=== PATIENT | female | born 1995 | race Caucasian/White ===

== ENCOUNTER 2016-08-06 19:08 | Outpatient (CLI) | payer BC ==
[~2016-08-06] VITALS: Ht 180.3 cm; Wt 112.3 kg
[~2016-08-06 19:08] MED LIST: AMOXICILLIN 25250 MG PO; AMOXICILLIN 50500 MG PO; BCP TD; CEPHALEXIN250 M1 PO; DIFLUCAN200 MG PO; ELIMITE TOP; LO/OVRAL-28 301 TA1 PO; LO/OVRAL-28 301 TAB PO; MOTRIN 800800 MG/TAB PO; NO HOME MEDICATIONS; NORCO 325 MG-51 TAB PO; PERCOCET 325 MG1 TA2 PO; PHENERGAN 25 TA25 MG PO; PRENATAL1 TA1 PO; ULTRAM 50MG TAB50 MG PO
[2016-08-06 20:47] VITALS: BP 119/66; PULSE 77; TEMP 98.1
[2016-08-06] MEDS ORDERED: VALTREX 50500 MG/TAB PO (20:54)
[2016-08-06] MEDS ORDERED: PRENATAL1 TA7 PO (20:54)
[2016-08-06] MEDS ORDERED: ZANTAC 7575 MG PO (20:59)
== END 2016-08-06 21:10 | disposition home or self-care (01) ==
LOC: LDRO 19:08
DX: Z03.71 Encounter for suspected problem with amniotic cavity and membrane ruled out (principal); Z87.891 Personal history of nicotine dependence; W10.8XXA Fall (on) (from) other stairs and steps, initial encounter; Y93.01 Activity, walking, marching and hiking

== ENCOUNTER 2016-08-17 03:41 | Inpatient (IN) | payer BC ==
[2016-08-17] VITALS (34 sets, daily range): BP systolic 86–132; BP diastolic 47–79; PULSE 72–102; TEMP 97.8–98.2
[~2016-08-17] VITALS: Ht 175.3 cm; Wt 115.0 kg
[~2016-08-17 03:41] MED LIST changes: +PRENATAL1 TA7 PO; +VALTREX 50500 MG/TAB PO; +ZANTAC 7575 MG PO
[2016-08-17 04:51] LABS: BASO # 0.1 (0.0-0.2); BASO % 0.3 % (0.0-2.0); EOS # 0.1 (0.0-0.7); EOS % 0.7 % (0-4.0); GRAN # 12.3 (1.4-6.5); GRAN % 73.6 % (42.2-75.2); LYMPH # 3.1 (1.2-3.4); LYMPH % 18.5 % (20.0-51.0); MEAN CELL VOLUME 85 fl (80.0-100.0); MEAN CORPUSCULAR HGB CONC 34 g/dl (33.0-37.0); MEAN PLATELET VOLUME 10.7 fl (7.4-10.4); MONO # 1.1 (0.1-0.6); MONO % 6.4 % (1.7-9.3); PLATELET COUNT 179 K/mm3 (130-400); RED BLOOD COUNT 4.06 M/mm3 (4.10-5.30); REDCELL DISTRIBUTION WIDTH-CV 12.5 % (11.5-14.5); WHITE BLOOD COUNT 16.7 K/mm3 (4.8-10.8)
[2016-08-17 04:53] LABS: HEMATOCRIT 34.4 % (37.0-47.0); HEMOGLOBIN 11.8 g/dl (12.5-16.0); MEAN CORPUSCULAR HEMOGLOBIN 29 pg (27.0-31.0)
[2016-08-18 01:10] VITALS: BP 112/65; PULSE 96; TEMP 97.5
[2016-08-18 07:14] VITALS: BP 114/68; PULSE 76; TEMP 98.2
[2016-08-18] MEDS ORDERED: IBU800 M1 PO (11:16)
[2016-08-18] MEDS ORDERED: PERCOCET 325 MG1 TA2 PO (11:17)
[2016-08-18 16:41] VITALS: BP 108/64; PULSE 78; TEMP 98.1
[2016-08-18 21:00] VITALS: BP 113/65; PULSE 77; TEMP 98.2
[2016-08-19 09:26] VITALS: BP 104/81; PULSE 86; TEMP 97.6
== END 2016-08-19 11:30 | disposition home or self-care (01) | DRG 775 ==
LOC: LDRO 03:41 → LDR 04:00 → OB 14:00
PROVIDERS: Obstetrics & Gynecology
PROC: 10D07Z6 Extraction of Products of Conception, Vacuum, Via Natural or Artificial Opening (ICD-10-PCS; principal; 2016-08-17)
PROC: 0HQ9XZZ Repair Perineum Skin, External Approach (ICD-10-PCS; 2016-08-17)
DX: O76 Abnormality in fetal heart rate and rhythm complicating labor and delivery (principal); O70.0 First degree perineal laceration during delivery; Z3A.38 38 weeks gestation of pregnancy; Z37.0 Single live birth
CPT/HCPCS: J2210; J2405; J2590; J7120

== ENCOUNTER 2016-09-29 06:06 | Emergency (ER) | payer BC ==
[~2016-09-29] VITALS: Ht 177.8 cm; Wt 104.1 kg
[~2016-09-29 06:06] MED LIST changes: +IBU800 M1 PO
[2016-09-29 06:08] VITALS: BP 110/69; TEMP 97.7
[2016-09-29 06:51] VITALS: PULSE 80
== END 2016-09-29 06:52 | disposition home or self-care (01) ==
LOC: COL.ER 06:06
DX: Z04.8 Encounter for examination and observation for other specified reasons (principal)

== ENCOUNTER 2017-02-18 17:48 | Emergency (ER) | payer BC ==
[~2017-02-18] VITALS: Ht 177.8 cm; Wt 98.6 kg
[2017-02-18] MEDS ORDERED: BIRTH CONTROL (17:52)
[2017-02-18 20:00] VITALS: BP 116/08; PULSE 63; TEMP 98.1
== END 2017-02-18 19:58 | disposition home or self-care (01) ==
LOC: COL.ER 17:48
DX: S43.004A Unspecified dislocation of right shoulder joint, initial encounter (principal); Z87.828 Personal history of other (healed) physical injury and trauma; Z87.891 Personal history of nicotine dependence; X50.3XXA Overexertion from repetitive movements, initial encounter; Y92.219 Unspecified school as the place of occurrence of the external cause; Y99.0 Civilian activity done for income or pay
CPT/HCPCS: J1170; J2704; J7030

== ENCOUNTER → 2017-03-07 | Outpatient (CLI) | payer BC ==
[~2017-03-07] MED LIST changes: +BIRTH CONTROL
== END ==
LOC: COL.RAD 02-26 08:30
DX: M24.411 Recurrent dislocation, right shoulder (principal); M89.8X1 Other specified disorders of bone, shoulder; M75.81 Other shoulder lesions, right shoulder; M21.821 Other specified acquired deformities of right upper arm
CPT/HCPCS: A9585; Q9967

== ENCOUNTER 2018-10-02 23:55 | Emergency (ER) | payer BC, MEDICAID ==
[~2018-10-02] VITALS: Ht 180.3 cm; Wt 111.8 kg
[2018-10-03 02:39] LABS: COLLECTION METHOD CLEAN CATCH
--- NOTE | 2018-10-03 02:45 | NUR ---
Difficult to maintain FHR tracing r/t gest age, movement, and maternal size. Monitor held in place for tracing. movements palpated.
[2018-10-03 02:50] LABS: MUCOUS Present /lpf; PH 5 (5-8); URINE APPEARANCE Hazy; URINE BACTERIA Rare /hpf; URINE BILIRUBIN Negative (NEGATIVE); URINE BLOOD Negative (NEGATIVE); URINE COLOR Yellow; URINE GLUCOSE Negative (NEGATIVE); URINE KETONE 2+ (NEGATIVE); URINE LEUKOCYTE ESTERASE 3+ (NEGATIVE); URINE NITRATE Negative (NEGATIVE); URINE PROTEIN(semi-quant) Negative (NEGATIVE); URINE RBC None Seen /hpf; URINE UROBILINOGEN Negative (NEGATIVE)
[2018-10-03 03:17] LABS: COLLECTION METHOD CATHETER
[2018-10-03 03:24] LABS: MUCOUS Present /lpf; PH 6 (5-8); URINE APPEARANCE Hazy; URINE BACTERIA None Seen /hpf; URINE BILIRUBIN Negative (NEGATIVE); URINE BLOOD Negative (NEGATIVE); URINE COLOR Yellow; URINE GLUCOSE Negative (NEGATIVE); URINE KETONE 2+ (NEGATIVE); URINE LEUKOCYTE ESTERASE Trace (NEGATIVE); URINE NITRATE Negative (NEGATIVE); URINE PROTEIN(semi-quant) Negative (NEGATIVE); URINE RBC 0-2 /hpf; URINE UROBILINOGEN Negative (NEGATIVE)
[2018-10-03] MEDS ORDERED: PRENATAL MVI PO (03:46)
[2018-10-03 04:22] LABS: BASO % 0.2 % (0.0-2.0); EOS % 0.2 % (0-4.0); GRAN # 9.5 (1.4-6.5); GRAN % 73.7 % (42.2-75.2); HEMOGLOBIN 10.6 g/dl (12.5-16.0); LYMPH % 15.1 % (20.0-51.0); MEAN CELL VOLUME 87 fl (80.0-100.0); MEAN CORPUSCULAR HEMOGLOBIN 30 pg (27.0-31.0); MEAN CORPUSCULAR HGB CONC 34 g/dl (33.0-37.0); MEAN PLATELET VOLUME 10.5 fl (7.4-10.4); MONO # 1.4 (0.1-0.6); MONO % 10.4 % (1.7-9.3); PLATELET COUNT 152 K/mm3 (130-400); RED BLOOD COUNT 3.55 M/mm3 (4.10-5.30); REDCELL DISTRIBUTION WIDTH-CV 12.4 % (11.5-14.5)
[2018-10-03 04:32] LABS: ALBUMIN 3.1 gm/dL (3.5-5.0); BILIRUBIN,TOTAL 0.4 mg/dL (0.0-1.0); CALCIUM 8.2 mg/dL (8.4-10.2); CREATININE, serum 0.49 (0.52-1.25); POTASSIUM 3.4 mmol/L (3.4-5.0); TOTAL PROTEIN 6.3 gm/dL (6.4-8.2)
[2018-10-03] MEDS ORDERED: CEPHALEXIN500 M1 PO (04:35)
[2018-10-03 06:28] VITALS: BP 107/55; PULSE 102; TEMP 97
== END 2018-10-03 06:28 | disposition home or self-care (01) ==
LOC: COL.ER 23:55
PROVIDERS: Emergency Medicine
DX: O23.92 Unspecified genitourinary tract infection in pregnancy, second trimester (principal); Z87.891 Personal history of nicotine dependence; Z3A.27 27 weeks gestation of pregnancy

== ENCOUNTER 2018-10-21 10:23 | Emergency (ER) | payer BC, MEDICAID ==
[~2018-10-21] VITALS: Ht 180.3 cm; Wt 109.1 kg
[~2018-10-21 10:23] MED LIST changes: +CEPHALEXIN500 M1 PO; +PRENATAL MVI PO
[2018-10-21 10:43] VITALS: BP 104/64; TEMP 97.4
[2018-10-21] MEDS ORDERED: AMOXICILLIN 8751 TAB PO (12:00)
[2018-10-21 12:50] VITALS: PULSE 79
== END 2018-10-21 12:40 | disposition home or self-care (01) ==
LOC: COL.ER 10:23
DX: J06.9 Acute upper respiratory infection, unspecified (principal); Z87.891 Personal history of nicotine dependence

== ENCOUNTER 2019-01-03 08:10 | Inpatient (IN) | payer MEDICAID ==
[~2019-01-03] VITALS: Ht 175.3 cm; Wt 115.9 kg
[2019-01-03] VITALS (29 sets, daily range): BP systolic 102–143; BP diastolic 51–92; PULSE 65–93; TEMP 97.8–98.4
--- NOTE | 2019-01-03 07:50 | NUR ---
0705 PATIENT HERE FOR INDUCTION OF LABOR. EFM ON FHT 120 BABY VERY ACTIVE.VS WNL.IV STARTED IN LEFT WRIST. LR STARTED AT THIS TIME WITH TAURUS FOR GBS+. PATIENT TOLERATE WELL AND BLOOD DRAWN SAME TIME AND SENT TO LAB.
[2019-01-03 08:03] LABS: BASO # 0.1 (0.0-0.2); BASO % 0.4 % (0.0-2.0); EOS # 0.3 (0.0-0.7); EOS % 2.3 % (0-4.0); GRAN # 8.3 (1.4-6.5); GRAN % 66.8 % (42.2-75.2); HEMOGLOBIN 11.8 g/dl (12.5-16.0); LYMPH # 2.9 (1.2-3.4); LYMPH % 23.2 % (20.0-51.0); MEAN CELL VOLUME 87 fl (80.0-100.0); MEAN CORPUSCULAR HEMOGLOBIN 28 pg (27.0-31.0); MEAN CORPUSCULAR HGB CONC 33 g/dl (33.0-37.0); MEAN PLATELET VOLUME 11.1 fl (7.4-10.4); MONO # 0.8 (0.1-0.6); MONO % 6.7 % (1.7-9.3); PLATELET COUNT 209 K/mm3 (130-400); RED BLOOD COUNT 4.15 M/mm3 (4.10-5.30); REDCELL DISTRIBUTION WIDTH-CV 13.5 % (11.5-14.5)
[2019-01-03 08:05] LABS: HEMATOCRIT 35.9 % (37.0-47.0)
[~2019-01-03 08:10] MED LIST changes: +AMOXICILLIN 8751 TAB PO
[2019-01-03] MEDS ORDERED: IBU600 MG PO (12:24)
--- NOTE | 2019-01-03 12:59 | NUR ---
1112 PATIENT SITS ON EDGE OF BED. Haider VELAZQUEZ CREW BOSS AT BEDSIDE FOR EPIDURAL PLACEMENT. PATIENT TOLERATES WELL. SEE Haider VELAZQUEZ CREW BOSS NOTESFOR QUESTIONS.1125 DR MARTINEZ CALLED UPDATED AND ASK TO COME TO HOSPITAL FOR DELIVERY
--- NOTE | 2019-01-03 13:02 | NUR ---
1145 PATIENT FEELING URGE TO PUSH.
--- NOTE | 2019-01-03 13:03 | NUR ---
1150 DR MARTINEZ HERE FOR DELIVERY.PATIENT RAFAEL PUSH WITH EACH CONTRACTION. 1200 BABY GIRL BORN VIA BY DR MARTINEZ. CORD CLAMPED AND CUT BY AND BABY TO MOMS CHEST. 1205 PLACENTA DELIVERED AT THIS TIME, PITOCIN STARTED AT 333/PROTOCOL. PATIENT STRAIGHT CATH BY . FUNDUS FIRM WITH SMALL AMOUNT OF BLEEDING NOTED. 1215 MODERATE AMOUNT OF BLEEDING WITH CLOTS. METHERGINE 0.2 MG IM GIVEN IN LEFT THIGH. FUNDUS MASSAGED UNTIL FIRM
[2019-01-04 08:05] VITALS: BP 121/80; PULSE 79; TEMP 98
[2019-01-04 17:09] VITALS: BP 131/90; PULSE 76; TEMP 97.8
[2019-01-04 20:05] VITALS: BP 110/72; PULSE 70; TEMP 97.7
[2019-01-05 08:44] VITALS: BP 106/75; PULSE 74
--- NOTE | 2019-01-05 12:53 | NUR ---
Initial visit; Parents thanked for offering congratulations for the of their daughter and for thanking them for choosing [facility].
== END 2019-01-05 12:05 | disposition home or self-care (01) | DRG 998 ==
LOC: LDR 08:10 → OB 08:11 → LDR 08:11 → OB 13:37
PROVIDERS: ADMIT Obstetrics & Gynecology
PROC: 10907ZC Drainage of Amniotic Fluid, Therapeutic from Products of Conception, Via Natural or Artificial Opening (ICD-10-PCS; principal; 2019-01-03)
PROC: 3E033VJ Introduction of Other Hormone into Peripheral Vein, Percutaneous Approach (ICD-10-PCS; 2019-01-03)
DX: O99.824 Streptococcus B carrier state complicating childbirth (principal); O98.313 Other infections with a predominantly sexual mode of transmission complicating pregnancy, third trimester; A60.00 Herpesviral infection of urogenital system, unspecified; O69.1XX0 Labor and delivery complicated by cord around neck, with compression, not applicable or unspecified; O62.2 Other uterine inertia; Z3A.40 40 weeks gestation of pregnancy; Z37.0 Single live birth
CPT/HCPCS: J2210; J2540; J2590; J2795; J7120